=== PATIENT | female | born 1930 | race Caucasian/White ===

== ENCOUNTER 2020-11-11 19:08 | Emergency (ER) | payer OTHER ==
[~2020-11-11] VITALS: Ht 149.9 cm; Wt 75.8 kg
[2020-11-11] MEDS ORDERED: LASIX40 MG PO (19:22)
[2020-11-11] MEDS ORDERED: LEVOTHYROXINE13 MCG PO (19:22)
[2020-11-11] MEDS ORDERED: PROTONIX20 MG PO (19:22)
[2020-11-11] MEDS ORDERED: XARELTO2.5 MG PO (19:23)
[2020-11-11] MEDS ORDERED: BACTRIM DS TAB1 EACH PO (22:30)
[2020-11-11] MEDS ORDERED: CEPHALEXIN500 MG PO (22:30)
[2020-11-11] MEDS ORDERED: ONDANSETRON ODT4 MG PO (22:30)
== END 2020-11-11 22:50 | disposition home or self-care (01) ==
LOC: ED 19:08
DX: L03.032 Cellulitis of left toe (principal); M10.9 Gout, unspecified; Z88.5 Allergy status to narcotic agent; Z88.0 Allergy status to penicillin; Z88.8 Allergy status to other drugs, medicaments and biological substances; Z79.899 Other long term (current) drug therapy
CPT/HCPCS: 73610; 80048; 83605; 85025; 85651; 99283-25